=== PATIENT | female | born 1985 | race Caucasian/White ===

== ENCOUNTER 2017-06-18 11:52 | Outpatient (RCR) | payer BC, SELFPAY ==
--- NOTE | 2017-06-19 11:37 | HP.PTEVAL_ITS ---
Patient's Visit Information KIERAN DE LA TORRE is a 32 year old F referred to Physical Therapy by Out of Town Doctor JADYN PHOENIX with a diagnosis of L humerus fracture. Date of Evaluation: 06/18/17 Physical Therapist: Mendel Joe - Visit Plan Frequency: 1x/Week Duration: 1 Week Plan: Pt. educated on proper PROM and AROM exercises to complete for HEP. Pt. was given handouts to assist. Pt. will be going back home tomorrow and will no longer be in the area to complete PT. Pt. will be trasnfered to alternate PT clinic in [place]. - Subjective Subjective: Pt. is here today for her initial evaluation with diagnosis of L humerus fracture. Pt. reports falling backwards onto L elbow resulting in L elbow fracture. Pt. has ORIF surgery on Jun 01. She is back in [place] visiting her parents for the holidays. Pt. reports initially having increased edema, but has resolved. 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 Pt. plans to go back to [place] on Thursday. Pt. is no longer using sling, but keeps erika guarded positioning. She reports increased symptoms at night resulting in difficulty sleeping, but is improving. Pt. denies N/T,but does report occassional pain in hand, resolves quickly. Pt. is going on vacation out of the country next week. Pt. is then returning back to [place]. Pt. reports overall she is doing better and the edema has reducing. She continues to report overall stiffness in her elbow. She is eager to improve [facility] - Pain Distal L humerous Pain Intensity (Out of 10): 1 Pain Intensity Range: 4 Comment: with movement - Objective POSTURE: Pt. keeps LUE in guarded positioning. Pt. has slight shoulder elevation. Pt. lacks elbow extnesion postioning. PALPATION: Pt. has healing incision at L posterior elbow. No signs of infection. Minimal redness noted. Pt. has edema throughout elbow, minimal in distal aspect of UE. NEUROLIGCAL: Pt. has normal sensation to light and sharp touch throughout LUE. Pt. has 2+ biceps DTR. ROM: AROM- L elbow- 0-15-88deg. PROM 0-10-99deg. Pt. reports increased soreness as limiting factor with end ranges of motion, tight end feel noted, not hard. Pt. lacks 15deg of supination as well on L side, full pronation noted. Pt. noted as limiting factor with supination. MMT- wrist with in normal limits, elbow/shoulder not tested. - Goals Goal 1:: Pt. to be I with HEP. Goal Time Frame: 1 day - Rehabilitation Potential Physical Therapy Diagnosis: Pt. has signs and symptoms consistent with L distal humerous fracture. Pt. is ~2 weeks S/P and is having no adverse signs. Pt. has increased elbow hypombility and weakness. Pt. would benefit from PT to increase ROM, both passively and actively at this point in time. Rehabilitation Potential: Good - Anticipated Interventions Patient/Client Instruction: Educate patient on: Condition, Plan of Care, Risk Factors, Benefits of Fitness Program For the Purpose of:: To foster healthy habits, To improve decision making, To facilitate caregiver knowledge, To improve self management, To prevent re-injury , To improve ability to perform tasks related to life management, To improve tolerance to ADL's Therapeutic Exercise to Include: Strength training, Passive ROM, Active ROM, Dynamic Lumbar Stabilization, Scapular Strength/Stabilization For the Purpose of:: To decrease pain, To increase ROM, To improve nutrient delivery to tissue, To increase oxygenation perfusion Thank you for the opportunity to evaluate your patient. For Medicare and Medicare HMO plans, please review the plan of care and approve it. It will need to be FAXED BACK to us at [phone] for Medicare purposes. Please let me know if there are questions or concerns regarding this plan of care. Physician Signature: Date:
== END 2017-06-18 12:15 | disposition home or self-care (01) ==
LOC: PT 11:52
DX: T14.8XXD Other injury of unspecified body region, subsequent encounter (principal)
CPT/HCPCS: 97110; 97162